=== PATIENT | male | born 1960 | race Caucasian/White ===

== ENCOUNTER → 2019-12-03 | Emergency (ER) | payer BC ==
[~2019-12-03] VITALS: Ht 172.7 cm; Wt 104.5 kg
[~2019-12-03] MED LIST: FLEXERIL 1010 MG/TAB PO
[2019-12-03 23:53] VITALS: BP 135/86; PULSE 72; TEMP 98
== END ==
LOC: COL.ER 23:49
DX: S50.311A Abrasion of right elbow, initial encounter (principal); S20.219A Contusion of unspecified front wall of thorax, initial encounter; W28.XXXA Contact with powered lawn mower, initial encounter; Y93.I9 Activity, other involving external motion; Y92.009 Unspecified place in unspecified non-institutional (private) residence as the place of occurrence of the external cause